=== PATIENT | male | born 2000 | race African-American/Black ===

== ENCOUNTER 2025-05-28 09:23 | Inpatient (IN) | payer MEDICAID, OTHER ==
[~2025-05-28] VITALS: Ht 177.8 cm; Wt 77.3 kg
[2025-05-28] MEDS: LORazepam 2 MG/ML VIAL IM ONE (09:46)
[2025-05-28] MEDS ORDERED: OLAN5TAB52 PO (11:01)
[2025-05-28 11:02] LABS: COVID AG,FIA SOURCE NPH
[2025-05-28 11:24] LABS: PLATELET COUNT (AUTO) 238 K/uL (150-450); RED BLOOD CELL COUNT(AUTO) 4.72 MIL/uL (4.50-5.90); RED CELL DISTRIBUTION WIDTH 13.8 % (11.5-14.5); WHITE BLOOD COUNT (AUTO) 4.3 K/uL (4.5-11.0)
[2025-05-28 11:24] LABS: SARS-COV2 (COVID) ANTIGEN,FIA Negative (Negative)
[2025-05-28 11:30] LABS: CALCIUM, TOTAL 9.1 mg/dL (8.8-10.5); CREATININE 1.34 mg/dL (0.60-1.30); GLOMERULAR FILTR. RATE CALC > 60 mL/min (>60); GLUCOSE,RANDOM 81 mg/dL (70-110); SODIUM SERUM 140 mmol/L (136-145); UREA NITROGEN, BLOOD 21 mg/dL (7-18)
[2025-05-28 11:40] LABS: ALCOHOL, BLOOD (SERUM) < 3 mg/dL (0-10)
[2025-05-28] MEDS ORDERED: ZOLPIDEM TARTRATE 10 MG TABLET PO PRN (12:30)
[2025-05-28 14:16] VITALS: BP 102/56; PULSE 84; RESP 17; TEMP 97.2; O2SAT 97
[2025-05-28] MEDS ORDERED: ONDANSETRON 4 MG TABLET PO PRN (15:00)
[2025-05-28] MEDS ORDERED: MAGNESIUM HYDROXIDE SUSPENSION 30 ML UDCUP PO PRN (15:00)
[2025-05-28] MEDS ORDERED: BACITRACIN 28 GM OINTMENT TP PRN (15:00)
[2025-05-28] MEDS ORDERED: OMEPRAZOLE 20 MG CAPSULE PO PRN (15:00)
[2025-05-28] MEDS ORDERED: PETROLATUM,WHITE 28 GM JELLY TP PRN (15:00)
[2025-05-28] MEDS ORDERED: DOCUSATE SODIUM 100 MG CAPSULE PO PRN (15:00)
[2025-05-28] MEDS ORDERED: BENZOCAINE/MENTHOL [CEPACOL] LOZENGE PO PRN (15:00)
[2025-05-28] MEDS ORDERED: MAG HYDROX/ALUMINUM HYD/SIMETH ES 30 ML SUSPENSION UDCUP PO PRN (15:00)
[2025-05-28] MEDS ORDERED: LOPERAMIDE HCL 2 MG CAPSULE PO PRN (15:00)
[2025-05-28] MEDS ORDERED: ACETAMINOPHEN 325 MG TABLET PO PRN (15:00)
[2025-05-28] MEDS ORDERED: IBUPROFEN 600 MG TABLET PO PRN (15:00)
[2025-05-28] MEDS ORDERED: ALBUTEROL SULFATE HFA 90 MCG/PUFF 8 GM INHALER IH PRN (15:00)
[2025-05-28 20:16] VITALS: BP 107/61; PULSE 71; RESP 17; TEMP 97.4; O2SAT 99
[2025-05-29 08:12] VITALS: BP 100/61; PULSE 70; RESP 17; TEMP 97.1; O2SAT 97
[2025-05-29 09:00] VITALS: BP 100/61; PULSE 70; RESP 17; TEMP 97.1; O2SAT 97
[2025-05-29 09:22] LABS: PLATELET COUNT (AUTO) 256 K/uL (150-450); RED BLOOD CELL COUNT(AUTO) 5.06 MIL/uL (4.50-5.90); RED CELL DISTRIBUTION WIDTH 13.7 % (11.5-14.5); WHITE BLOOD COUNT (AUTO) 4.5 K/uL (4.5-11.0)
[2025-05-29 09:47] LABS: ASPARTATE AMINOTRANSFERASE 88 U/L (15-37); CALCIUM, TOTAL 9.3 mg/dL (8.8-10.5); CHOL/HDL RATIO 3.3 (4.2-7.3); CREATININE 1.31 mg/dL (0.60-1.30); GLOMERULAR FILTR. RATE CALC > 60 mL/min (>60); GLUCOSE,RANDOM 116 mg/dL (70-110); LDL CHOL (CALC.) 110 mg/dL (0-130); SODIUM SERUM 138 mmol/L (136-145); TOTAL PROTEIN, SERUM 8.4 g/dL (6.4-8.2); UREA NITROGEN, BLOOD 20 mg/dL (7-18)
[2025-05-29] MEDS: LITHIUM CARBONATE 300 MG CAPSULE PO SCH (16:46)
[2025-05-29 20:10] VITALS: RESP 17
[2025-05-30 04:07] LABS: HEPATITIS C AB (EIA) Non Reactive (Non Reactive)
[2025-05-30 08:04] VITALS: BP 130/61; PULSE 71; RESP 18; TEMP 97.4; O2SAT 98
[2025-05-30 20:13] VITALS: BP 128/84; PULSE 65; RESP 18; TEMP 97.5; O2SAT 99
[2025-05-31 05:44] VITALS: BP 125/82; PULSE 66; RESP 17; TEMP 97.6; O2SAT 99
[2025-05-31 08:27] VITALS: BP 124/56; PULSE 95; RESP 19; TEMP 97.4; O2SAT 99
[2025-05-31] MEDS ORDERED: RISP3TAB77 PO (08:27)
[2025-05-31] MEDS ORDERED: LITH300C3 PO (08:29)
== END 2025-05-31 09:50 | disposition home or self-care (01) | DRG 750 ==
LOC: EMS 09:23 → B3A 13:13
PROVIDERS: ADMIT Psychiatry & Neurology Psychiatry; ATTEND Psychiatry & Neurology Psychiatry
DX: F20.9 Schizophrenia, unspecified (principal); F12.10 Cannabis abuse, uncomplicated; F31.9 Bipolar disorder, unspecified; F41.9 Anxiety disorder, unspecified; Z20.822 Contact with and (suspected) exposure to COVID-19; G47.00 Insomnia, unspecified; K59.00 Constipation, unspecified; Z72.0 Tobacco use; Z79.899 Other long term (current) drug therapy
CPT/HCPCS: 80048; 80053; 80061; 83036; 84436; 84439; 84443; 85025; 86803; 87340; 96372; 99291; G0480; J1200; J1630; J2060